=== PATIENT | female | born 1945 ===

== ENCOUNTER 2025-03-07 18:52 | Emergency (ER) | payer OTHER, MEDICARE, SELFPAY ==
[2025-03-07 19:00] VITALS: BP 180/89; PULSE 71; RESP 16; TEMP 36.6; O2SAT 96; BMI 23.2
--- NOTE | 2025-03-07 19:17 | ED_ITS ---
HPI - General Adult General Chief complaint: Wound/Laceration Stated complaint: cut on finger Time Seen by Provider: 03/07/25 19:09 Source: patient Mode of arrival: ambulatory Limitations: no limitations History of Present Illness ED Provider: Hussein Perez [facility] narrative: 79 yold female presents to the ED for right ring finger laceration caused by mandalin. Patient unknown last tdap shot. patient states no other compalints. Related Data Allergies Allergy/AdvReac Type Severity Reaction Status Date / Time Penicillins (PCN) Allergy Mild HIVES Verified 03/07/25 19:08 Review of Systems 2 Review of Systems: right finger laceration Yes all other systems are reviewed and are negative PMFSH Social History Social History Advance Directives: No Advance Directives Information Provided: No Do you have a plan to hurt others: No Plan Physical Exam ED Vital Signs: Vital Signs - 24 hr 03/07/25 19:00 Temperature 98 F Pulse Rate 71 Respiratory Rate 16 Blood Pressure 180/89 H Pulse Oximetry 96 Oxygen Delivery Method Room Air BMI result Body Mass Index 23.2 Const General: cooperative, healthy appearing, comfortable, no acute distress, well developed, alert, awake and Physically active Orientation/consciousness: patient oriented x3 HENMT Head: Yes normal to inspection, Yes No palpable skull fracture present, Yes normocephalic and Yes atraumatic Eyes General: appearance normal, both eyes and all related structures Neck Neck: Yes normal visual inspection, Yes full ROM, Yes no lymphadenopathy, Yes no meningeal signs, Yes trachea midline, Yes supple, No anterior neck swelling and No tender Chest Chest palpation & inspection: normal inspection of the chest and normal palpation of entire chest wall Resp Effort & Inspection: normal respiratory effort and able to speak in complete sentences Auscultation: clear to auscultation bilaterally Cardio Jugular venous distension: no JVD Heart sounds: S1 normal heart sound present and S2 normal heart sound present GI Inspection: Yes normal to inspection Palpation (GI): Soft to palpation, not firm, nontender, no guarding and not rigid General: Yes no CVA tenderness Back/Spine/Pelvis Back: no CVA tenderness and No back tenderness Skin General skin exam: no rashes or lesions noted, elasticity normal and turgor normal Neuro General: patient oriented x3, gait normal, tone normal, moves all extremities, Normal light touch and pain sensation, no meningeal signs, no focal motor deficits and CN's II-XI intact bilaterally Extrem General: Yes normal to inspection, Yes full ROM and Yes capillary refill normal Hand/finger images: 2 1. abrasions. no active bleeding. negative for signs of nerve/tendon injury. rest of extremity normal. motor, neuro, and vacsular exam is intact. Psych Appearance: grossly normal, well kempt and not disheveled Course Course Course Narrative: 79 yold female presents to the ED right ring finger laceration that is very superificial no need for laceration repiar. Area cleaned with sterile saline. Tdap given. no xray needed. patient cut finger on mandalin. Medications Administered Discontinued Medications Generic Name Dose Route Start Last Admin Trade Name Freq PRN Reason Stop Dose Admin Diphtheria/Tetanus/Acell Pertussis 0.5 ml 03/07/25 19:12 03/07/25 19:35 Diphth,Pertus(Acell),Tet Adult 0.5 Ml Syringe IM 03/07/25 19:13 0.5 ml .ONCE ONE Administration Medical Decision Making Medical Decision Making MDM Narrative: 79 yold female presents to the Ed for right ring finger superficial abrasion caused by Neha. Bleeding controlled. No nail bed injury. No signs of nerve/tendon injury. No x-ray indicated. Tdap ordered. Wound cleaned. no antiobitcs needed. Patient will be discharged. Patient explained worrisome signs informed return to the ED immediately Differential Diagnosis Differential Diagnoses: The differential diagnosis associated with the presentation includes (Laceration abrasion now Benadryl) Admission/Observation Consideration of admission/observation: Escalation of care including admission/observation considered Independent Historian Clinical information obtained from an independent historian. History obtained from or confirmed by: Other (Patient) Prescription Management I considered prescription management with: Pain Medication Discharge Plan Discharge Clinical Impression: Abrasion, Laceration Patient Disposition: Home, Self-Care Instructions: Abrasion (ED) Additional Instructions: Recommend follow up with primary care provider. Return to the ED immediately for any redness, swelling, pus discharge, foul odor, bluish black discoloration, numbness/tingling, or any other concerning symptoms. Referrals: Jeyson Shannon MD [Primary Care Provider, Internal Medicine] - 2 days Referral Note: Laceration abrasion Clinical Impression: Laceration; Abrasion Interventions: ED Discharge Assessment Last Done: 03/07/25 19:40 Discharge Date/Time: 03/07/25 19:43 Print Language: Bulgarian
--- OUTSIDE RECORDS SUMMARY | 2025-03-07 19:28 | XMS_ITS | Clinical Summary ---
Author Organization [facility] Address [address] [place], [place] [id number] Care Team Providers Care Handyman Name Role Phone Jeyson Shannon MD Primary Care Provider [phone] Allergies No known active allergies Medications Medication Sig Dispensed Refills Start Date End Date Status diclofenac (VOLTAREN) 50 MG EC tablet Take 1 tablet (50 mg total) by mouth 3 (three) times a day. 90 tablet 0 06/07/2023 Active oxyCODONE-acetaminoph en (PERCOCET) 5-325 MG per tablet 1 tablet every 6 hours as needed for pain 10 tablet 0 06/07/2023 Active Social History Tobacco Use Types Packs/Day Years Used Date Smoking Tobacco: Never Assessed Sex and Gender Information Value Date Recorded Sex Assigned at Not on file Gender Identity Not on file Sexual Orientation Not on file Job Start Date Occupation Industry Not on file Not on file Not on file Last Filed Vital Signs Vital Sign Reading Time Taken Comments Blood Pressure - - Pulse - - Temperature - - Respiratory Rate - - Oxygen Saturation - - Inhaled Oxygen Concentration - - Weight 65.8 kg (145 lb) 06/07/2023 11:23 AM EST Height 170.2 cm (5' 7 ) 06/07/2023 11:23 AM EST Body Mass Index 22.71 06/07/2023 11:23 AM EST Plan of Treatment Health Maintenance Due Date Last Done Comments Hepatitis C Screening 1945 Depression Screening 1957 Preventative Health Evaluation 09/30/1963 DTap / Tdap / Td (1 - Tdap) 1964 Shingrix-Zoster Vaccine (1 of 2) 09/30/1995 Fall Risk Assessment 2010 Osteoporosis Screening (DEXA Scan) 2010 RSV Adult > 60+ Yrs or (1 - 1-dose 75+ series) 2020 COVID-19 Vaccine ( season) 2025 03/25/2021, 07/29/2020, 07/04/2020 Influenza Vaccine (#1) 2025 , 02/22/2020, 05/15/2018, Additional history exists Pneumococcal Vaccine Completed 01/20/2016, 01/14/20 12 Hepatitis B Vaccines Aged Out No long er eligible based on patient's age to complete this topic RSV Ped < 20 months Aged Out No longe r eligible based on patient's age to complete this topic Care Teams Handyman Relationship Specialty Start Date End Date Jeyson Shannon MD [address] [place] [address] PCP - General Family Medicine 06/03/23
--- OUTSIDE RECORDS SUMMARY | 2025-03-07 19:28 | XMS_ITS | Clinical Summary ---
Author Organization [facility] Address [address] [facility] [address] [place] [phone] Phone Care Team Providers Care Phone Banker Name Role Phone Jeyson Shannon MD Primary Care Provider + Allergies Active Allergy Reactions Criticality Noted Date Comments Atorvastatin 04/17/2023 myalgia Medications valsartan-hydroc hlorothiazide (DIOVAN-HCT) 160-12.5 mg per tablet Take 1 tablet by mouth daily. Active budesonide-formo terol (SYMBICORT) 80-4.5 mcg/actuation inhaler Inhale 2 puffs into the lungs 2 (two) times a day. Active finasteride (PROPECIA) 1 mg tablet Take 1 tablet (1 mg total) by mouth daily. 30 tablet 11 05/19/2022 Active albuterol (PROAIR HFA) 90 mcg/actuation inhaler Inhale 2 puffs into the lungs 4 (four) times a day for 14 days. 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 Not on eulogio e 09/02/2022 Are you concerned about learning? Not on file 09/02/2022 No 09/02/2022 No 09/02/2022 Digital Access Answer Date Recorded No 10/04/2022 No 10/04/2022 Reliable internet access at home? Not on file 10/04/2022 Device with a working camera? Not on file Comments Unknown Sex and Gender Information Value Date Recorded Sex Assigned at Female 03/09/2021 2:33 PM EDT Legal Sex Female 7:13 PM EST Gender Identity Female 03/09/2021 2:33 PM EDT Sexual Orientation Straight 03/09/2021 2: 33 PM EDT Last Filed Vital Signs Vital Sign Reading Time Taken Comments Blood Pressure 168/90 04/17/2023 11:14 AM EST Pulse 66 04/17/2023 11:14 AM EST Temperature 36.7 C (98 F) 04/17/2023 11:14 AM EST Respiratory Rate 20 04/17/2023 11:14 AM EST Oxygen Saturation 100% 04/17/2023 11:14 AM EST Inhaled Oxygen Concentration - - Weight 64.9 kg (143 lb) 04/17/2023 11:14 AM EST Height 168.9 cm (5' 6.5 ) 04/17/2023 11:14 AM ES T Body Mass Index 22.74 04/17/2023 11:14 AM EST Plan of Treatment Upcoming Encounters Date Type Department Care Team (Late st Contact Info) Description 04/09/2025 11:20 AM EST Office Visit [facility] Otolaryngology General [address] [place] [address] Bob Lazcano MD [address] [place] [address] [email or web address] 05/30/2025 3:00 PM EST Evaluation [facility] Audiology [place] [address] [place] [address] Sofía Virgen AuD [address] [place] [id number] [email or web address] Health Maintenance Due Date Last Done Comments CREATININE LEVEL 1945 LIPID PANEL 1945 POTASSIUM LEVEL 1945 DEPRESSION SCREENING 1957 HEPATITIS C SCREENING 09/30/1963 ZOSTER VACCINES (1 of 2) 09/30/1995 OSTEOPOROSIS SCREENING INITIAL (ONE-TIME) 2010 RSV VACCINE (1 - 1-dose 75+ series) 2020 BLOOD PRESSURE 10/17/2023 04/17/2023 INFLUENZA VACCINE (#1) 2024 , 02/22/2020, 01/24/2019, Additional history exists COVID-19 VACCINE ( season) 2025 03/25/2021, 07/29/2020, 07/04/2020 Adult Td,Tdap Booster 01/19/2026 01/20/2016 PNEUMOCOCCAL VACCINES (50+ years) Completed 01/20/2016, 01/14/2012 HEPATITIS A VACCINES Aged Out 02/06/2019, 01/25/20 19 No longer eligible based on patient's age to complete this topic SMOKING STATUS SCREENING (Once After 26 Yrs) Completed 04/17/2023 HIB VACCINES Aged Out No longer eligi ble based on patient's age to complete this topic MENINGOCOCCAL VACCINES (ACWY) Aged Out No longer eligible based on patient's age to complete this topic MENINGOCOCCAL VACCINES (B) Aged Out N o longer eligible based on patient's age to complete this topic Medical Devices Not on file Insurance MEDICARE PART A & B [facility] [employer] [facility] MEDICARE SUPPLEMENT MEDICARE PART A & B [facility] MEDICARE SUPPLEMENT [facility] Address: [facility] [address] [place] [address] MEDICARE PART A & B FOR LIFE MEDICARE SUPPLEMENT [facility] Address: [address] [address] MEDICARE PART A & B FOR LIFE MEDICARE SUPPLEMENT MEDICARE PART A & B [facility] MEDICARE SUPPLEMENT [facility] Address: [id number] [place] [address] MEDICARE PART A & B [facility] FOR LIFE MEDICARE SUPPLEMENT MEDICARE PART A & B [facility] FOR LIFE MEDICARE SUPPLEMENT MEDICARE PART A & B [employer] MEDICARE SUPPLEMENT [facility] Address: [facility] [address] [place] [address] MEDICARE PART A & B FOR LIFE MEDICARE SUPPLEMENT Care Teams Phone Banker Relationship Specialty Start Date End Date Jeyson Shannon MD [address] [place] [address] [phone] PCP - General Family Medicine 02/28/25 Additional Source Comments The information contained in this document represents components of the legal health record. It is not the complete legal health record.[facility]
--- OUTSIDE RECORDS SUMMARY | 2025-03-07 19:28 | XMS_ITS | Patient Health Record ---
Author Organization [employer] [facility] Address [address] [facility] [address] [place] [address] Care Team Providers Care Able Bodied Seaman Name Role Phone Mer ESCOBAR, Scooter Primary Care Provider Kate Jewell Unavailable [phone] Allergies Allergen (clinical drug ingredient) Drug/Non Drug Allergy documented on EMR Reaction Allergy Type Onset Date Status Medicinal cephalosporin and acting as antibacterial agent (FN) Cephalosporin (uncoded) Skin Rash Allergy Active Penicillin Skin Rash Drug Allergy Active Reason For Referral No Information Medications Medication SIG (Take, Route, Frequency, Duration) Notes Start Date End Date Status Multi-Vitamin - 1 tablet Orally Once a day; Duration: 30 day(s) Active Advair Diskus 250-50 MCG/DOSE 1 puff Inhalation Twice a day Active Montelukast Sodium 10 MG TK 1 T PO QD Or al; Duration: 90 Not-Taking Valsartan 160 MG 1 tablet Orally Once a day; Duration: 30 day(s) 01/03/2020 Active Biotin 5000 MCG 1 tablet Orally Once a day; Duration: 30 day(s) Active Vitamin E 400 UNIT 1 capsule Orally Onc e a day; Duration: 30 day(s) Active Social History Alcohol Screen (Audit-C) Question Answer Notes Did you have a drink contain ing alcohol in the past year? Yes How often did you have a dri nk containing alcohol in the past year? 2 to 3 times a week (3 points) How many drinks did you have on a typical day when you were drinking in the past year? 1 or 2 drinks (0 point) Points 3 Interpretation Positive Sexual History Question Answer Notes Had sex in the past 12 months (vaginal, oral, or anal)? No Problems Problem Type SNOMED Code ICD Code Onset Dates Problem Status W/U Status Risk Notes Problem Postmenopausal atrophic vaginitis (93153624) Postmenopausal atrophic vaginitis (N95.2) Active confirmed Plan Of Treatment Pending Test Test Name Order Date MAMMOGRAM, SCREENING 01/03/2020 THIN PREP,HPV,DUSTY IF HPV+ (>29YR)(SCRN) 07/04/2017 BONE DENSITY 01/03/2020 MM Digital Mammo Screening 07/04/2017 MM Digital Mammo Screening 01/03/2020 Insurance Providers Payer Name Payer Address Payer Phone Subscriber Number Group Number Insured Name Patient Relationship to Insured Coverage Start Date Coverage End Date MEDICARE [address] HARDEEP ROBERTS [id number] LORENZO STANLEY Self - patient is the insured / [employer] [address] [place] [address] [id number] DOMINIC STANLEY Spouse - patient is the spouse of the insured Medical (General) History Medical History History ICD Code Postmenopausal atrophic vaginitis N95.2 Inconclusive mammogram R92.2 Other asthma J45.998 Essential (primary) hypertension I10 Surgical History Surgery Date(Month/Year) Ankle Fracture 2012 Colonoscopy Hospitalization History Reason Date(Month/Year) Asthma 1988 Asthma 1994 3 Vaginal Deliveries
[2025-03-07] MEDS: Diphth,Pertus(ACell),Tet Adult 0.5 ML SYRINGE IM (19:35)
[2025-03-07 19:40] VITALS: BP 180/89; PULSE 71; RESP 16; TEMP 36.6; O2SAT 96
== END 2025-03-07 19:43 | disposition home or self-care (01) ==
PROVIDERS: Emergency Provider Student in an Organized Health Care Education/Training Program; PCP Family Medicine
DX: S61.214A Laceration without foreign body of right ring finger without damage to nail, initial encounter (principal); S60.414A Abrasion of right ring finger, initial encounter; W45.8XXA Other foreign body or object entering through skin, initial encounter; Y93.89 Activity, other specified; Y92.89 Other specified places as the place of occurrence of the external cause; Y99.8 Other external cause status
CPT/HCPCS: 90471; 90715; 99282; 99284